=== PATIENT | male | born 1970 | race Caucasian/White ===

== ENCOUNTER 2021-10-01 00:42 | Day surgery (SDC) | payer OTHER, SELFPAY ==
[2021-09-19 13:28] VITALS: BMI 29.5
--- NOTE | 2021-09-30 17:27 | PM.HPGS ---
History of Present Illness History of Present Illness Consent: Risks, benefits, and alternatives have been discussed and questions answered. Patient agrees to proceed with procedure. Chief complaint: positive cologuard Narrative: Jonathan Mathew is a 50 year old male referred for colon cancer screening. This is his 1st colonoscopy. He did perform a Cologuard test which was positive Review of Systems Review of Systems: All systems reviewed & are unremarkable except as noted in HPI and below PMFSH Past Medical History Medical History Anxiety Depression Hyperlipidemia Family History Family History Father Hypertension Social History Social History Smoking status: Never smoker Alcohol intake: current Drinks per week: 4 Alcohol use details: socially Substance use: current Substance use type: marijuana Other substance usage details: 2x a month Living arrangements: with family Spiritual care concerns: No Meds Home Medications and Allergies Home Medications Medication Instructions Recorded Confirmed Type atorvastatin 20 mg PO DAILY 09/19/21 09/19/21 History ropinirole 1 mg PO DAILY 09/19/21 09/19/21 History vortioxetine [Trintellix] 20 mg PO DAILY 09/19/21 09/19/21 History Allergies Allergy/AdvReac Type Severity Reaction Status Date / Time No Known Allergies Allergy Mild Verified 10/01/21 06:51 Exam Const: General: alert Orientation/consciousness: patient oriented x3 Resp: Auscultation: clear to auscultation bilaterally Cardio: Rhythm: regular rhythm GI: GI Palp: Yes Soft to palpation and No Tenderness to palpation present (GI) Neuro: General: patient oriented x3 Assessment and Plan Assessment and plan (1) Colon cancer screening: Code(s): Z12.11 - Encounter for screening for malignant neoplasm of colon Status: Acute Assessment and Plan: Colonoscopy with possible biopsy or polypectomy or cautery or injection of substances.
[2021-10-01 06:52] VITALS: BP 135/71; PULSE 60; RESP 18; TEMP 36.6; O2SAT 97
--- NOTE | 2021-10-01 06:56 | WPDANESEPPF ---
Anes - Initial Pre Proc Eval Procedure: Operation Date: 10/01/21 08:00 Proposed Procedures p Colonoscopy - Jay Dykes MD Date/Time: 10/01/21 06:56 Surgeon: Jay Dykes MD Pre Op Diagnosis: positive cologuard Patient Data Age: 50 Gender: M Height: 1.75 m Weight: 90.9 kg Allergies Allergy/AdvReac Type Severity Reaction Status Date / Time No Known Allergies Allergy Mild Verified 10/01/21 06:51 Home Medications Medication Instructions Recorded Confirmed Type atorvastatin 20 mg PO DAILY 09/19/21 09/19/21 History ropinirole 1 mg PO DAILY 09/19/21 09/19/21 History vortioxetine [Trintellix] 20 mg PO DAILY 09/19/21 09/19/21 History Patient hx anesthesia problems: none Family hx anesthesia problems: none Results Review: All pre-operative results and documents have been reviewed as part of the pre-operative evaluation. COUNTS INCLUDE 234 BEDS AT [facility] Past Medical History Medical History (Updated 10/01/21 @ 06:57 by Dima Mason DO) Anxiety Depression Hyperlipidemia Family History Family History (Updated 04/21/14 @ 07:13 by DOCTOR UNKNOWN) Father Hypertension Social History Social History Smoking status: Never smoker Alcohol intake: current Drinks per week: 4 Alcohol use details: socially Substance use: current Substance use type: marijuana Other substance usage details: 2x a month Living arrangements: with family Spiritual care concerns: No Anes - Eval Final PreProcedure Day of Procedure 10/01/21 06:56 Patient weight: overweight Heart: regular rate and rhythm Lungs: clear to auscultation and normal air movement Airway: Mallampati scale class II Neurological: alert and oriented Last oral intake: >/= 8 hours ASA classification: II Emergent: no Anesthetic plan: proceed Anesthesia type and monitoring: general GIVS and standard monitoring Results Review: All pre-operative results and documents have been reviewed as part of the pre-operative evaluation. Informed Consent: The patient's anesthetic plan and its attendant risks and benefits were discussed with the patient/family/POA. Questions were solicited and answers provided to the satisfaction of the patient/family/POA.
[2021-10-01] MEDS: LACTATED RINGERS 1,000 ML 150 ML IV CONT (07:03)
[2021-10-01] MEDS: SIMETHICONE ORAL SUSPENSION 20 MG/0.3 ML 30 ML BOTTLE 0.6 ML IRRIGATION (08:00)
[2021-10-01 08:15] VITALS: BP 104/52; PULSE 69; RESP 18; O2SAT 97
[2021-10-01 08:25] VITALS: BP 116/70; PULSE 63; RESP 18; O2SAT 98
[2021-10-01 08:35] VITALS: BP 118/66; PULSE 64; RESP 18; O2SAT 99
== END 2021-10-01 08:51 | disposition home or self-care (01) ==
PROVIDERS: PCP Internal Medicine; Visit Provider Internal Medicine Gastroenterology
PROC: 0DJD8ZZ Inspection of Lower Intestinal Tract, Via Natural or Artificial Opening Endoscopic (ICD-10-PCS; CPT 45378; principal; 2021-10-01 08:00)
DX: Z12.11 Encounter for screening for malignant neoplasm of colon (principal); D12.5 Benign neoplasm of sigmoid colon; K62.1 Rectal polyp; R19.5 Other fecal abnormalities; E78.5 Hyperlipidemia, unspecified; F41.8 Other specified anxiety disorders; F12.90 Cannabis use, unspecified, uncomplicated
CPT/HCPCS: 45385; 45380; 88305; J2704; J7120

== ENCOUNTER 2025-01-27 01:30 | Day surgery (SDC) | payer OTHER, SELFPAY ==
[2025-01-18 14:12] VITALS: BMI 32.5
--- OUTSIDE RECORDS SUMMARY | 2025-01-27 01:34 | XMS_ITS | Clinical Summary ---
Author Organization [facility] Address [address] [place] [address] Care Team Providers Care Enrollment Advisor Name Role Phone Unavailable Primary Care Provider Unavailabl e Source Comments [facility],non-owned Affiliates and Associated Physician Practices is amultiple site organization consisting of ambulatory clinics and hospital sitesin [place], [place], [place] and [place]. This disclosure is being madepursuant to the Care Everywhere program and may not contain all information available regarding this patient. 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 Gender Identity Not on file Sexual Orientation Not on file Plan of Treatment Health Maintenance Due Date Last Done Comments COLOGUARD (AGES 45-75) - COL ON CA SCREENING 1971 COLON MONITORING 1971 COLONOSCOPY - COLON CA SCREENING 1971 CT COLONOGRAPHY - COLON CA SCREENING 1971 Colorectal Cancer Screening 1971 FIT - COLON CA SCREENING 1971 FLEX SIG - COLON CA SCREENING 1971 LIPID TESTING 1971 HIV SCREENING 1986 HEPATITIS C SCREENING 10/17/1989 DTAP/TDAP/TD VACCINES (1 - Tdap) 1990 HEPATITIS B VACCINE (1 of 3 - 19+ 3-dose series) 1990 PNEUMOCOCCAL VACCINE 50+ (1 of 1 - PCV) 2021 ZOSTER VACCINE (1 of 2) 2021 COVID-19 VACCINE ( - 2023-2 5 season) 2024 DEPRESSION SCREENING 08/25/2024 INFLUENZA VACCINE (Season Ended) 2025 HIB VACCINE Aged Out No longer eligi ble based on patient's age to complete this topic HPV VACCINE Aged Out No longer eligi ble based on patient's age to complete this topic MENINGOCOCCAL (Group B) VACC INE SHARED DECISION-MAKING Aged Out No longer eligibl e based on patient's age to complete this topic MENINGOCOCCAL GROUPS A/C/Y/W VACCINE Aged Out No longer eligible b ased on patient's age to complete this topic Insurance
--- OUTSIDE RECORDS SUMMARY | 2025-01-27 01:34 | XMS_ITS | Clinical Summary ---
Author Organization [facility] [address] Address [address] [place] [id number] Care Team Providers Care Switch Operators Supervisor Name Role Phone Zhao Allison MD Primary Care Provider Allergies No known active allergies Medications rOPINIRole (REQUIP) 0.25 mg tablet take 1 tablet by oral route 3 times every day 0 0 12/13/2016 Active vortioxetine (TRINTELLIX) 5 mg tablet take 1 tablet by oral route every day at the same time each day 0 0 12/13/[address] (CYMBALTA) 60 mg capsule take 1 capsule (60MG) by oral route every day 0 01/12/2013 Active Active Problems No known active problems Medical History Medical History Date Comments Hx Other Medical heart disease Hypertension Hypertension Family History Medical History Relation Name Comments Cancer Other Family history of Cancer; Hypertension Other Family history of Hypertension; Relation Name Status Comments Other Social History Tobacco Use Types Packs/Day Years Used Date Smoking Tobacco: Never Assessed Alcohol Use Standard Drinks/Week Comments Yes 0 (1 standard drink = 0.6 oz pur e alcohol) Sex and Gender Information Value Date Recorded Sex Assigned at Not on file 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 Gender Identity Not on file Sexual Orientation Not on file Obstetrics History Last Filed Vital Signs Vital Sign Reading Time Taken Comments Blood Pressure 130/85 07/26/2023 10:35 AM HISTORY INSTRUCTOR Pulse 117 07/26/2023 10:35 AM HISTORY INSTRUCTOR Temperature 37.3 C (99.1 F) 07/26/2023 10:35 AM HISTORY INSTRUCTOR Respiratory Rate 16 07/26/2023 10:35 AM HISTORY INSTRUCTOR Oxygen Saturation 99% 07/26/2023 10:35 AM HISTORY INSTRUCTOR Inhaled Oxygen Concentration - - Weight 102.1 kg (225 lb) 07/26/2023 10:35 AM HISTORY INSTRUCTOR Height 175.3 cm (5' 9) 07/26/2023 10:35 AM HISTORY INSTRUCTOR Body Mass Index 33.23 07/26/2023 10:35 AM HISTORY INSTRUCTOR Plan of Treatment Health Maintenance Due Date Last Done Comments Colon Cancer Screening-Colonoscopy 1971 Depression Screening 1971 Hepatitis C Screening 1971 Prostate Cancer Screening-PSA 1971 DTaP/Tdap/Td Vaccine (1 - Tdap) 1982 Hepatitis B Screening 1989 Regular Well Visit/Exam 18-64 1989 Zoster Vaccine (1 of 2) 2021 Influenza Vaccine (Season Ended) 2025 08/05/2022, 07/16/2021 Pneumococcal vaccine <65 Aged Out No longer eligible based on patient's age to complete this topic Insurance [facility] CHOICE PLUS Care Teams Switch Operators Supervisor Relationship Specialty Start Date End Date Zhao Allison MD [address] [facility] [address] PCP - General Internal Medicine 07/26/23
--- OUTSIDE RECORDS SUMMARY | 2025-01-27 01:34 | XMS_ITS | Referral Summary ---
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 Gender Identity Not on file Sexual Orientation Not on file Last Filed Vital Signs Vital Sign Reading Time Taken Comments Blood Pressure 130/85 07/26/2023 10:35 AM PARTS COUNTERMAN Pulse 117 07/26/2023 10:35 AM PARTS COUNTERMAN Temperature 37.3 C (99.1 F) 07/26/2023 10:35 AM PARTS COUNTERMAN Respiratory Rate 16 07/26/2023 10:35 AM PARTS COUNTERMAN Oxygen Saturation 99% 07/26/2023 10:35 AM PARTS COUNTERMAN Inhaled Oxygen Concentration - - Weight 102.1 kg (225 lb) 07/26/2023 10:35 AM PARTS COUNTERMAN Height 175.3 cm (5' 9) 07/26/2023 10:35 AM PARTS COUNTERMAN Body Mass Index 33.23 07/26/2023 10:35 AM PARTS COUNTERMAN Plan of Treatment Not on file Insurance [facility] CHOICE PLUS Care Teams Radiology Tech Relationship Specialty Start Date End Date Zhao Allison MD [address] [facility] [place] [address] PCP - General Internal Medicine 07/26/23
--- OUTSIDE RECORDS SUMMARY | 2025-01-27 01:34 | XMS_ITS | Data Portability ---
Author Organization [place] [facility] [employer], Main Office Address [address] [place] [address] Assessment No assessment recorded. Plan of Treatment Reminders Order Date Submit Date Provider Last Modified By Organization Details Last Modified Time Details Appointments None recorded. Lab PSA, serum or plasma [id number] [place] [address] Outpatient Lab, [address] [place], [address], 12:42:26 lipid panel, serum [id number] [place] [address] Outpatient Lab, [address] [place], [address], 12:42:25 CMP, serum or plasma [id number] [place] [address] Outpatient Lab, [address] [place], [address], 5 12:42:26 CBC w/ auto diff [id number] [place] [address] Outpatient Lab, [address] [place], [address], 5 12:42:26 TSH, serum or plasma [id number] [place] [address] Outpatient Lab, [address] [place], [address], 5 12:42:26 T4, free, serum [id number] [place] [address] Outpatient Lab, [address] [place], [address], 5 12:42:26 PSA, serum or plasma 2022 023 [email or web address] [facility] - Outpatient Lab, [address] [place], [address], 4 09:44:53 lipid panel, serum 2022 023 [facility] - Outpatient Lab, [address] [place], [address], 4 09:44:52 CMP, serum or plasma 2022 023 [facility] Outpatient Lab, [address] [place], [address], 4 09:44:53 CBC w/ auto diff 2022 023 [email or web address] [facility] - Outpatient Lab, [address] [place], [address], 4 09:44:53 TSH, serum or plasma 2022 023 [facility] Outpatient Lab, [address] [place], [address], 4 09:44:53 T4, free, serum 2022 023 [email or web address] [facility] Outpatient Lab, [address] [place], [address], 4 09:44:53 PSA, serum or plasma 2022 023 [email or web address] [facility] Outpatient Lab, [address] [place], [address], 3 17:38:38 lipid panel, serum 2022 023 [email or web address] [facility] - Outpatient Lab, [address] [place], [address], 3 17:38:37 CMP, serum or plasma [address] Outpatient Lab, [address] [place] [address], [address], 3 17:38:37 CBC w/ auto diff [address] Outpatient Lab, [address] [place] [address], [address], 3 17:38:38 TSH, serum or plasma [address] Outpatient Lab, [address] [place] [address], [address], 3 17:38:38 T4, free, serum [address] Outpatient Lab, [address] [place] [address], [address], 3 17:38:38 Referral None recorded. Procedures None recorded. Surgeries None recorded. Imaging None recorded. Medication Orders Protonix 40 mg tablet,del ayed release 2024 025 [id number], [address] [place], [place], [id number], 5 16:38:07 Patient TargetsNo targets recorded. Patient Instructions Encounter Date Encounter Id Patient Instructions Last Modified By Organization Details Last Modified Time 02/03/2023 [id number] risk assessment* [id number] Not availabl e 02/03/2023 11:05:32 INFLUENZA VACCIN E Recommended today, but patient declined Ordered P atient will get at local pharmacy/health department Patient has egg allergy Next vaccination to be given fall of Next vaccination to be given fall of TD/TDAP Patient will get at local pharmacy/health department PNEUMONIA VACCINE Recommended at age 65 SHINGLES Patient will get at local pharmacy/health department PSA No screening necessary patient is up to date COLORECTAL SCREENING No screening necessary patient is up to date DEPRESSION SCREENING Negative BMI Overweight try to lose 10% of your body weight NUTRITION Heart Healthy Diet Recommendatio n of a 1500 caloric intake for weight loss is advised Diabetic Diet Renal Diet DASH Diet Continue healthy eating & exercise Eat Heart Healthy Diet PHYSICAL ACTIVITY Need more exercise/physical activity ALCOHOL USE Occasional/Social Use TOBACCO USE non smoker LUNG CANCER SCREENING Non Smoker-not indicated SEXUALLY ACTIVE HEPATITIS C SCREENING Not indicated GLUCOSE SCREENING Ordered Not needed Known Diabetic recommend ed LIPID SCREENING Ordered Not needed Diagnosis of Hyperlipidemia rec ommended Not available 02/03/2023 10:51:59 Adult health examination risk assessment stable. Follow-up for hyperlipidemia-res tless leg syndrome-anxiety disorder and class one obesity. All clinically stable. Not due for colonoscopy. Had a colonoscopy last year and is due again in three years. Does need a PSA. Otherwise up-to-date. Will need blood work consisting of a CMP, CBC and lipid panel. Will also check a thyroid along with this. Will continue on current Rx and follow-up in six months [email or web address] Not available 02/03/2023 11:02:03 08/04/2023 [id number] Follow-up hyperlipidemia, restless leg syndrome, anxiety disorder and obesity class one. All clinically stable. Check blood work consisting of CBC, CMP, lipid, thyroid and PSA. Continue on current Rx was given a flu shot today. Follow-up in six months. Portions of the record may have been created with voice recognition software. Occasional wrong-word or [id number] substitutions may have occurred due to the inherent limitations of voice recognition software. Read the chart carefully and recognize, using context, where substitutions have occurred. [email or web address] Not available 08/04/2023 10:43:41 Reason for Referral None Reported. Results Created Date Observation Date Name Description Value Unit Range Abnormal Flag Note LastModifiedBy Organization Detail LastModifiedTime 08/08/20 21 08/12/2021 TESTO STERO NE, FREE (DIAL YSIS) AND TOTAL ,MS testosterone , total, MS 455 NG/dL 250-11 00 For addit ional infor francia holden refer to https ://ed sridharati on.qu randi jaraWevod. [employer]/f aq/FA Q165 (This link is being provi ded for infor matio nal/e ducat ional purpo ses only. ) (Note ) This test was devel oped and its lj tical perfo rmanc e yaw cteri stics have been deter mined by [facility]. It has not been clear ed or appro yves by the FDA. This assay has been valid ated pursu ant to the CLIA regul ation s and is used for clini jimmy purpo ses. Not Available [facility] [address] [address] [place], [address], 08/12/2021 20:22:01 08/08/20 21 08/12/2021 TESTO STERO NE, FREE (DIAL YSIS) AND TOTAL ,MS testosterone , free 73.3 pg/mL 35.0-1 55.0 (Note ) This test was devel oped and its lj tical perfo rmanc e yaw cteri stics have been deter mined by [employer]. It has not been clear ed or appro yves by the FDA. This assay has been valid ated pursu ant to the CLIA regul ation s and is used for clini jimmy purpo ses. MDF med fusio n [address] [facility] [address] [facility] [address] [phone] Mino zayas MD Not Available [facility] [address] [address] [place], [address], 08/12/2021 20:22:01 08/08/20 21 08/12/2021 TSH TSH 1.16 mIU/L 0.40-4 .50 normal Not Available [facility] [address] [address] [place], [address], 08/12/2021 20:22:00 08/08/20 21 08/12/2021 T4, FREE T4, free 1.2 NG/dL 0.8-1. 8 normal Not Available [facility] [address] [address] [place], [address], 08/12/2021 20:22:00 08/08/20 21 08/12/2021 DHEA SULFA TE DHEA sulfate 138 mcg/d L 70-495 normal DHEA- S value s fall with advan cing age. For refer ence, the refer ence inter vals for 31-40 year old patie nts are: Male: 106-4 64 mcg/d L Femal e: 23-26 6 mcg/d L Not Available [facility] [address] [place], [address], 08/12/2021 20:21:59 08/08/20 21 08/12/2021 HS CRP hs CRP 2.5 mg/L normal Refer ence Range Optim al <1.0 Jessie church PS et al. Endoc r Pract .2017 ;23(S uppl 2):1- 87. For ages >17 Years : hs-CR P mg/L Risk Accor ding to AHA/C DC Guide lines <1.0 Lower relat tai cardi ovasc ular risk. 1.0-3 .0 [place] ge relat tai cardi ovasc ular risk. 3.1-1 0.0 Hig[place] r relat tai cardi ovasc ular risk. Consi rayo retes ting in 1 to 2 weeks to exclu de a benig n trans ient eleva tion in the basel ine CRP value secon alyse to infec tion or infla mmati on. >10.0 Persi stent eleva tion, upon retes ting, may be assoc iated with infec tion and infla mmati on. Not Available [facility] [address] [address] [place], [address], 08/12/2021 20:21:58 08/08/20 21 08/12/2021 CBC (INCL UDES DIFF/ PLT) white blood cell count 5.0 thous and/u L 3.8-10 .8 normal Not Available [facility] [address] [place], [address], 08/12/2021 20:21:57 08/08/20 21 08/12/2021 CBC (INCL UDES DIFF/ PLT) red blood cell count 5.24 law on/uL 4.20-5 .80 normal Not Available [address], [address], 08/12/2021 20:21:57 08/08/20 21 08/12/2021 CBC (INCL UDES DIFF/ PLT) hemoglobin 15.0 g/dL 13.2-1 7.1 normal Not Available [address], [address], 08/12/2021 20:21:57 08/08/20 21 08/12/2021 CBC (INCL UDES DIFF/ PLT) hematocrit 46.4 % 38.5-5 0.0 normal Not Available [address], [address], 08/12/2021 20:21:57 08/08/20 21 08/12/2021 CBC (INCL UDES DIFF/ PLT) MCV 88.5 fL 80.0-1 00.0 normal Not Available [address], [address], 08/12/2021 20:21:57 08/08/20 21 08/12/2021 CBC (INCL UDES DIFF/ PLT) MCH 28.6 pg 27.0-3 3.0 normal Not Available [address], [address], 08/12/2021 20:21:57 08/08/20 21 08/12/2021 CBC (INCL UDES DIFF/ PLT) MCHC 32.3 g/dL 32.0-3 6.0 normal Not Available [address], [address], 08/12/2021 20:21:57 08/08/20 21 08/12/2021 CBC (INCL UDES DIFF/ PLT) RDW 14.0 % 11.0-1 5.0 normal Not Available [address] [place], [address], 08/12/2021 20:21:57 08/08/20 21 08/12/2021 CBC (INCL UDES DIFF/ PLT) platelet count 281 thous and/u L 140-40 0 normal Not Available [address], [address], 08/12/2021 20:21:57 08/08/20 21 08/12/2021 CBC (INCL UDES DIFF/ PLT) MPV 9.4 fL 7.5-12 .5 normal Not Available [address], [address], 08/12/2021 20:21:57 08/08/20 21 08/12/2021 CBC (INCL UDES DIFF/ PLT) absolute neutrophils 2665 cells /uL 1500-7 800 normal Not Available [address], [address], 08/12/2021 20:21:57 08/08/20 21 08/12/2021 CBC (INCL UDES DIFF/ PLT) absolute lymphocytes 1905 cells /uL 850-39 00 normal Not Available [address], [address], 08/12/2021 20:21:57 08/08/20 21 08/12/2021 CBC (INCL UDES DIFF/ PLT) absolute monocytes 300 cells /uL 200-95 0 normal Not Available [address], [address], 08/12/2021 20:21:57 08/08/20 21 08/12/2021 CBC (INCL UDES DIFF/ PLT) absolute eosinophils 100 cells /uL 15-500 normal Not Available [address], [address], 08/12/2021 20:21:57 08/08/20 21 08/12/2021 CBC (INCL UDES DIFF/ PLT) absolute basophils 30 cells /uL 0-200 normal Not Available [address], [address], 08/12/2021 20:21:57 08/08/20 21 08/12/2021 CBC (INCL UDES DIFF/ PLT) neutrophils 53.3 % normal Not Available [address], [address], 08/12/2021 20:21:57 08/08/20 21 08/12/2021 CBC (INCL UDES DIFF/ PLT) lymphocytes 38.1 % normal Not Available [address], [address], 08/12/2021 20:21:57 08/08/20 21 08/12/2021 CBC (INCL UDES DIFF/ PLT) monocytes 6.0 % normal Not Available [address], [address], 08/12/2021 20:21:57 08/08/20 21 08/12/2021 CBC (INCL UDES DIFF/ PLT) eosinophils 2.0 % normal Not Available [address], [address], 08/12/2021 20:21:57 08/08/20 21 08/12/2021 CBC (INCL UDES DIFF/ PLT) basophils 0.6 % normal Not Available [address], [address], 08/12/2021 20:21:57 08/08/20 21 08/12/2021 COMPR EHENS TAI METAB OLIC PANEL glucose 90 mg/dL 65-99 normal Fasti ng refer ence inter keila Not Available [address], [address], 08/12/2021 20:21:57 08/08/20 21 08/12/2021 COMPR EHENS TAI METAB OLIC PANEL urea nitrogen (BUN) 19 mg/dL 7-25 normal Not Available [address], [address], 08/12/2021 20:21:57 08/08/20 21 08/12/2021 COMPR EHENS TAI METAB OLIC PANEL creatinine 1.14 mg/dL 0.60-1 .35 normal Not Available [address], [address], 08/12/2021 20:21:57 08/08/20 21 08/12/2021 COMPR EHENS TAI METAB OLIC PANEL eGFR non-afr. sao tomean 75 mL/mi n/1.7 3m2 > or = 60 normal Not Available [address], [address], 08/12/2021 20:21:57 08/08/20 21 08/12/2021 COMPR EHENS TAI METAB OLIC PANEL eGFR 87 mL/mi n/1.7 3m2 > or = 60 normal Not Available [address], [address], 08/12/2021 20:21:57 08/08/20 21 08/12/2021 COMPR EHENS TAI METAB OLIC PANEL BUN/creatini ne ratio not applic able (calc ) 6-22 Not Available [address], [address], 08/12/2021 20:21:57 08/08/20 21 08/12/2021 COMPR EHENS TAI METAB OLIC PANEL sodium 141 mmol/ L 135-14 6 normal Not Available [address], [address], 08/12/2021 20:21:57 08/08/20 21 08/12/2021 COMPR EHENS TAI METAB OLIC PANEL potassium 4.5 mmol/ L 3.5-5. 3 normal Not Available [address] [place], [address], 08/12/2021 20:21:57 08/08/20 21 08/12/2021 COMPR EHENS TAI METAB OLIC PANEL chloride 106 mmol/ L 98-110 normal Not Available [address], [address], 08/12/2021 20:21:57 08/08/20 21 08/12/2021 COMPR EHENS TAI METAB OLIC PANEL carbon dioxide 25 mmol/ L 20-32 normal Not Available [address], [address], 08/12/2021 20:21:57 08/08/20 21 08/12/2021 COMPR EHENS TAI METAB OLIC PANEL calcium 9.6 mg/dL 8.6-10 .3 normal Not Available [address], [address], 08/12/2021 20:21:57 08/08/20 21 08/12/2021 COMPR EHENS TAI METAB OLIC PANEL protein, total 6.6 g/dL 6.1-8. 1 normal Not Available [address], [address], 08/12/2021 20:21:57 08/08/20 21 08/12/2021 COMPR EHENS TAI METAB OLIC PANEL albumin 4.3 g/dL 3.6-5. 1 normal Not Available [address], [address], 08/12/2021 20:21:57 08/08/20 21 08/12/2021 COMPR EHENS TAI METAB OLIC PANEL globulin 2.3 g/dL_ (calc ) 1.9-3. 7 normal Not Available [address], [address], 08/12/2021 20:21:57 08/08/20 21 08/12/2021 COMPR EHENS TAI METAB OLIC PANEL albumin/glob ulin ratio 1.9 (calc ) 1.0-2. 5 normal Not Available [address], [address], 08/12/2021 20:21:57 08/08/20 21 08/12/2021 COMPR EHENS TAI METAB OLIC PANEL bilirubin, total 0.4 mg/dL 0.2-1. 2 normal Not Available [address], [address], 08/12/2021 20:21:57 08/08/20 21 08/12/2021 COMPR EHENS TAI METAB OLIC PANEL alkaline phosphatase 70 U/L 36-130 normal Not Available [address], [address], 08/12/2021 20:21:57 08/08/20 21 08/12/2021 COMPR EHENS TAI METAB OLIC PANEL AST 21 U/L 10-40 normal Not Available [address], [address], 08/12/2021 20:21:57 08/08/20 21 08/12/2021 COMPR EHENS TAI METAB OLIC PANEL ALT 17 U/L 9-46 normal Not Available [address], [address], 08/12/2021 20:21:57 08/08/20 21 08/12/2021 LIPID PANEL , STAND RIC cholesterol, total 232 mg/dL <200 high Not Available [address], [address], 08/12/2021 20:21:56 08/08/20 21 08/12/2021 LIPID PANEL , STAND RIC HDL cholesterol 39 mg/dL > or = 40 low Not Available [address], [address], 08/12/2021 20:21:56 08/08/20 21 08/12/2021 LIPID PANEL , STAND RIC triglyceride s 306 mg/dL <150 high If a non-f astin g speci men was colle cted, consi rayo repea t trigl yceri de testi ng on a fasti ng speci men if clini genoveva indic ated. Claudy dallas et al. J. of Clin. Lipid ol. 2015; 9:129 -169. Not Available [facility] [address] [place], [address], 08/12/2021 20:21:56 08/08/20 21 08/12/2021 LIPID PANEL , STAND RIC LDL-choleste rol 146 mg/dL _(jimmy c) high Refer ence range : <100 Yen able range <100 mg/dL for prima ry preve ntion ; <70 mg/dL for patie nts with CHD or diabe tic patie nts with > or = 2 CHD risk facto rs. LDL-C is now calcu lated using the Stacey n-Hop kins calcu latio n, which is a valid ated novel timothyo d provi jean morante r accur acy than the Fried mee equat ion in the estim ation of LDL-C . Stacey mccabe SS et al. ANNA. 2013; 310(1 9): 2061- 2068 (http ://ed ucati on.Qu collinNight Up. com/f aq/FA Q164) Not Available [facility] [address] [place], [address], 08/12/2021 20:21:56 08/08/20 21 08/12/2021 LIPID PANEL , STAND RIC chol/HDLC ratio 5.9 (calc ) <5.0 high Not Available [facility] [address] [place], [address], 08/12/2021 20:21:56 08/08/20 21 08/12/2021 LIPID PANEL , STAND RIC non HDL cholesterol 193 mg/dL _(jimmy c) <130 high For patie nts with diabe danis plus 1 major ASCVD risk facto r, treat ing to a non-H DL-C goal of <100 mg/dL (LDL- C of <70 mg/dL ) is rhea mixon optio n. Not Available [facility] [address] [address], [place], [address], 08/12/2021 20:21:56 08/20/20 21 08/20/2021 COLOG UARD cologuard result reportable positi ve negati ve abnormal POSIT TAI TEST RESUL T. A posit tai Colog uard resul t shoul d be follo wed with a colon oscop y or visua l exami natio n of the colon . The chase l value (refe rence range ) for this assay is negat tai. TEST DESCR IPTIO N: Scanlon site algor ithmi c lj sis of stool DNA-b iomar kers with hemog lobin immun oassa y. Quant itati ve value s of indiv idual bioma rkers are not repor table and are not assoc iated with indiv idual bioma rker resul t refer ence range s. Colog uard is inten ded for color ectal cance r scree ceci of adult s of eithe r sex, 45 years or older , who are at [facility] for color ectal cance r (CRC) . Colog uard has been appro yves for use by the U.S. FDA. The perfo rmanc e of Colog uard was estab lishe d in a cross secti onal study of [facility] adult s aged 50-84 . Colog uard perfo rmanc e in patie nts ages 45 to 49 years was estim ated by sub-g roup lj sis of near- age group s. Colon oscop ies perfo rmed for a posit tai resul t may find as the most clini genoveva signi fican t lesio n: color ectal cance r [4.0% ], advan blanche adeno ma (incl uding sessi le abdullahi michael polyp s great er than or equal to 1cm diame ter) [20%] or non- advan blanche adeno ma [31%] ; or no color ectal neopl umu [45%] . These estim ates are deriv ed from a prosp ectiv e cross -sect ional scree ceci study of ,00 0 indiv idual s at [place] ge risk for color ectal cance r who were scree jesse with both Colog uard and colon oscop y. (Shonda Rosa et al, N Engl J Med 2014; 370(1 4):12 86-12 97.) Colog uard may produ ce a false negat tai or false posit tai resul t (no color ectal cance r or preca ncero us polyp prese nt at colon oscop y follo w up). A negat tia Colog uard test resul t does not guara ntee the absen ce of CRC or advan blanche adeno ma (pre- cance r). The curre nt Colog uard scree ceci inter keila is every 3 years . (Amer ican Cance r Socie ty and U.S. Multi -Soci ety Task Force ). Colog uard perfo rmanc e data in a 0 patie nt pivot al study using colon oscop y as the refer ence metho d can be acces sed at the follo wing locat ion: www.e xactl abs.c om/re reji . Addit ional descr iptio n of the Colog uard test proce ss, warni ngs and preca ution s can be found at www.c edeu ric.c om. Not Available [facility] (Cologuard Orders Only) [address], [place], [address], 08/27/2021 08:52:04 Result Notes None recorded. Problems Name Problem SNOMED Code Status Onset Date Resolution Date Notes Provider Name and Address Organization Details Recorded Time Anxiety disorder 927207159 Active 2018 Not Available [facility] 3 21:18:57 Gastroesop hageal reflux disease 669865087 Active 2018 JEN Stacy - [facility] [employer] 5 11:05:05 Family history of Cardiovasc ular disease 960633348 Active 2018 Not Available [facility] 3 21:18:57 Restless legs 00127917 Active 2018 Not Available [facility] 3 21:18:57 Hyperlipid emia 92043294 Active 2021 Not Available [facility] 3 21:18:57 Testicular hypofuncti on 174241044 Active 2022 Zhao Allison MD [address], [place], [address] , [facility] 3 10:58:41 Obese class I 0025888756422 07 Active 2022 Zhao Allison MD [address], [place], [address] , [facility] 3 10:59:26 Disorder of prostate 12653269 Active 2022 Zhao Allison MD [address] [employer], [place], [address] , [facility] 3 10:43:27 Problem Notes None recorded. Procedures Surgical History Date Name Laterality Status Provider Name and Address Organization Details Recorded Time Vasectomy completed Not Available [facility] 0 10/23/2022 21:17:47 Imaging Results None recorded. Procedure Notes None recorded. Medical Equipment None Reported. Medications Name Sig Start Date Stop Date Status Note LastModified by Organization Details LastModified Time atorvastati n 20 mg tablet pt needs to call office for appt we have not seen since 2022 active Not Available Not Available No t Available ropinirole 1 mg tablet TAKE 2 TABLETS BY MOUTH TWICE DAILY active Not Available Not Available No t Available omeprazole 40 mg capsule,del ayed release TAKE ONE CAPSULE BY MOUTH EVERY DAY 07/16 completed Not Available Not Available Not Available tramadol 50 mg tablet TK 1 T PO Q 6 H PRN 07/16 completed Not Available Not Available Not Available pantoprazol e 40 mg tablet,lashell yed release TAKE 1 TABLET BY MOUTH EVERY DAY active Not Available Not Available No t Available methylpredn isolone 4 mg tablets in a dose pack 08/04 completed Not Available Not Available Not Available albuterol sulfate HFA 90 mcg/actuati on aerosol inhaler INHALE 2 PUFFS BY MOUTH EVERY 4 HOURS NEEDED active Not Available Not Available No t Available fluticasone propionate 50 mcg/actuati on nasal spray,suspe nsion SHAKE LIQUID AND USE 1 SPRAY IN EACH NOSTRIL 1 TO 2 TIMES A DAY 12/29 completed Not Available Not Available Not Available amoxicillin 875 mg-potassiu m clavulanate 125 mg tablet TAKE 1 TABLET BY MOUTH EVERY 12 HOURS WITH FOOD 12/29 completed Not Available Not Available Not Available Neupro 1 mg/24 hour transdermal 24 hour patch APPLY 1 PATCH TOPICALLY TO THE SKIN EVERY DAY 08/05 completed Not Available Not Available Not Available Trintellix 10 mg tablet TK 1 T PO ONCE A DAY 07/16 completed Not Available Not Available Not Available Trintellix 20 mg tablet TAKE 1 TABLET BY MOUTH DAILY active Not Available Not Available No t Available Vitals Date Recorded Body height Body mass index (BMI) Body weight Heart rate Body temperature Oxygen saturation Oxygen saturation in Arterial blood by Pulse oximetry Systolic blood pressure Diastolic blood pressure Provider Name and Address Organization Details Last Updated DateTime 5 175.26 cm 33.7 kg/m2 108462. 06 g 79 /min 97 [degF] 98 % 98 % 118 mm[Hg] 90 mm[Hg] Rylie Quijano [facility] 5 16:28:21 Date Recorded Body height Body mass index (BMI) Body weight Heart rate Oxygen saturation Oxygen saturation in Arterial blood by Pulse oximetry Systolic blood pressure Diastolic blood pressure Provider Name and Address Organization Details Last Updated DateTime 3 175.26 cm 33.7 kg/m2 059677. 06 g 80 /min 97 % 97 % 122 mm[Hg] 68 mm[Hg] Nay Cardoza CMA [facility] 3 10:48:33 Date Recorded Body mass index (BMI) Body height Heart rate Respiratory rate Body temperature Body weight Systolic blood pressure Diastolic blood pressure Provider Name and Address Organization Details Last Updated DateTime 1 30.4 kg/m2 175.26 cm 72 /min 12 /min 97.6 [degF] 74586.0 3 g 114 mm[Hg] 68 mm[Hg] Not Available [facility] 3 21:18:11 Date Recorded Body height Body mass index (BMI) Body weight Heart rate Body temperature Oxygen saturation Oxygen saturation in Arterial blood by Pulse oximetry Systolic blood pressure Diastolic blood pressure Provider Name and Address Organization Details Last Updated DateTime 3 175.26 cm 33.7 kg/m2 937785. 86 g 72 /min 97 [degF] 97 % 97 % 134 mm[Hg] 82 mm[Hg] Rylie Quijano [place] [facility] 3 10:37:45 Date Recorded Body mass index (BMI) Body height Oxygen saturation Oxygen saturation in Arterial blood by Pulse oximetry Heart rate Body temperature Body weight Systolic blood pressure Diastolic blood pressure Provider Name and Address Organization Details Last Updated DateTime 2 34.6 kg/m2 175.26 cm 96 % 96 % 81 /min 97.2 [degF] 749604. 61 g 120 mm[Hg] 88 mm[Hg] Not Available [facility] 3 21:18:12 Social History Question Answer Notes LastModified by [employer] Details LastModified Time Tobacco Smoking Status Former Smoker Not Available [facility] 10/23/2022 21:17:28 When Did You Quit Smoking? 17+yearssinc elastcigaret te [id number] Information not available 10/23/2022 What Was The Date Of Your Most Recent Tobacco Screening? 07/16/2021 [id number] Information not available 10/23/2022 Sex: Unknown Functional Status Question Answer Note LastModified by [employer] Details LastModified Time Do you or have you ever used any other forms of tobacco or nicotine? No [id number] Information not available 10/23/2022 Mental Status None recorded. Family History Relationship Description Onset Age of this Age Resolved Age Notes LastModified by Organization Details LastModified Time Mother Coronary artery bypass graft [id number] Not available 10/23/2022 21:17:47 Father Hypertensive disorder [id number] Not available 10/23/2022 21:17:47 Notes:Mother living 74 CABG Father living 74 HTN One brother living good health Two sisters living good health Medical History Condition Response BLINDNESS N NERVE DISEASE N RHEUMATIC FEVER N BLADDER PROBLEMS N KIDNEY STONES N MRSA N OTHER # 1 N POLIO N LUNG DISEASE/DISORDER N HISTORY OF DRUG ABUSE N RADIATION / CHEMOTHERAPY N COPD N Other # 2 N BLOOD DISEASES N EAR OR HEARING PROBLEMS N MUMPS N SHINGLES N BOWEL PROBLEMS N DEPRESSION (INCLUDING POST ) N STROKE/TIA N ULCERS N BENIGN PROSTATIC HYPERPLASIA N MEASLES N HYPOTENSION N MYOCARDIAL INFARCTION N OBESITY N GERD/NAUSEA N ANEURYSM N URINARY/BLADDER/KIDNEY PROBLEMS N CORONARY ARTERY DISEASE (CAD) N ADDICTION CONCERNS N Impotence N ENDOMETRIOSIS N USE OF BLOOD THINNERS N SKIN PROBLEMS N GASTROINTESTINAL DISORDER N PERIPHERAL VASCULAR DISEASE N MUSCLE,JOINT OR BONE PROBLEMS N GASTROINTESTINAL BLEEDING N BLOOD CLOTS N ASTHMA N CATARACTS N ERECTILE DYSFUNCTION N VARICOSITIES N GI PROBLEMS N Low Testosterone N INFERTILITY N AIDS/HIV N CHEMOTHERAPY / RADIATION N LIVER DISEASE N MALE HYPOGONADISM N HYPERTENSION N Deficiency N TOURETTE'S N ANXIETY DISORDER Y BLOOD TRANSFUSION N ANEMIA/BLOOD DISORDER N CHRONIC EAR INFECTIONS N BRONCHITIS N TUBERCULOSIS N GLAUCOMA N FOOT PROBLEM N DIVERTICULITIS N SLEEP APNEA N CHICKENPOX N INFECTIOUS DISEASE N PROSTATE N HEART ARRHYTHMIA N INSOMNIA N HIGH CHOLESTEROL / HYPERLIPIDEMIA N HYPERTHYROIDISM N EYE PROBLEMS N EDEMA N CHRONIC PAIN SYNDROME N HYPOTHYROIDISM N CONSTIPATION N CAROTID BLOCKAGE N BACK / NECK PROBLEMS N HAVE YOU BEEN HOSPITALIZED OR SEEN IN [facility] IN THE PAST YEAR ? N ATHEROSCLEROSIS N BREAST PROBLEMS N DIALYSIS N ECZEMA N OSTEOPOROSIS N ARTHRITIS N NO SIGNIFICANT PAST MEDICAL HISTORY N APPENDICITIS N DIABETES, TYPE N BAD TEETH N ENT N HEARTBURN / REFLUX Y AUTISM SPECTRUM DISORDER (ASD) N HEPATITIS / LIVER DISEASE N GOUT N SLEEP DISORDER N ALZHEIMER'S DISEASE N Brain Problems N HERPES N DEMENTIA N SEIZURES/EPILEPSY N HEADACHES/MIGRAINES N VASCULAR DISEASE N PACEMAKER N Blood Disorder N DIZZINESS N KIDNEY DISEASE N HEART DISEASE/HEART PROBLEMS N MULTIPLE SCLEROSIS N CARDIAC ARRHYTHMIA N CANCER: SPECIFY N Gall Stones N ATRIAL FIBRILLATION N PULMONARY EMBOLISM N AUTOIMMUNE DISEASE N Immunizations Vaccine Type Date Status Note Provider Nam e and Address Organization Details Recorded Time Influenza, split virus, quadrivalent, PF 07/16/2021 completed Not Available [facility] 3 21:19:57 Influenza, split virus, quadrivalent, PF 08/05/2022 completed Not Available [facility] 21:19:57 Influenza, split virus, quadrivalent, PF 08/04/2023 completed Zhao Allison MD [address] [place] [address], [place] [address], [place], [address], [place] - [facility] 08/04/2023 10:39:25 Past Encounters Encounter ID Performer Location Encounter Start Date Encounter Closed Date Diagnosis/Indication Diagnosis SNOMED-CT Code Diagnosis ICD10 Code Diagnosis Note [id number] Zhao Allison MD [facility] Internal Med [facility] [address] [address] 07/16/2021 00:00:00 07/16/2021 16:25:55 [id number] Zhao Allison MD [facility] Internal Med [facility] [address] [facility] [address] [place] [address] 08/05/2022 00:00:00 08/05/2022 17:05:52 [id number] Zhao Allison MD [facility] Internal Med [facility] [address] [facility] [address] [place] [address] 02/03/2023 10:34:50 02/03/2023 11:13:07 Adult health examination 724887412 Z00.00 Depression screening 171 641960 Z13.31 Hyperlipidemia 27022517 E78.5 Restless legs 86332631 G 25.81 Anxiety disorder 06 F41.9 Obese class I 6423996017 51301 E66.9 Disorder of prostate 302 71439 N42.9 [id number] Zhao Allison MD [facility] Internal Med [facility] [address] [facility] [address] [place] [address] 08/04/2023 10:31:58 08/04/2023 10:48:49 Administration of influenza vaccine 24031143 Z23 Restless legs 78629739 G 25.81 Anxiety disorder 06 F41.9 Hyperlipidemia 89127470 E78.5 Disorder of prostate 302 63460 N42.9 [id number] Zhao Alilson MD [facility] [place] Med [address] [address] 12/29/2024 16:11:11 12/29/2024 16:47:33 Gastroesophageal reflux disease 478450733 K21.9 Hyperlipidemia 38857931 E78.5 Obese class I 1905063929 09353 E66.9 Disorder of prostate 302 06536 N42.9 Health Concerns Section Related Observation LastModified by Organization Detai ls LastModified Time None Recorded Concern Status LastModified by Organization Details LastModified Time None Recorded Advance Directives Directive None Recorded Payers Encounter Date Sequence Insurance Name Policy Number Policy Mcguire Covered Member ID Mcguire Member ID Guarantor Name 02/03/2023 1 [facility] [id number] Jonathan Mathew [id number] Jonathan Mathew 08/04/2023 1 [facility] [id number] Jonathan Mathew [id number] Jonathan Mathew 12/29/2024 1 [facility] [id number] Jonathan Mathew [id number] Jonathan Mathew Notes Date Note Type Note Provider Name and Address Organization Details Recorded Time 02/04/20 23 text/htm l Patient Name: Jonathan Winterate Of Service: Friday ( 02.03.2023 ): 1970 Age: 52 There has been approximately a 6 lb weight loss since 08/05/2022. This represents approximately a 2.6% change in weight. Weight change attributable to lifestyle changes. Vital Signs:Blood Pressure: Sitting Rt. Arm 122/68Pulse: Sitting 80 /min and RegularRespirations: 12Height 69 in or 1.8 mWeight 228 lb or 103.4 kgBMI 33.7Temperature: 97 F or 36.1 CPulse Oximetry: 97 % at rest on no oxygen Chief Complaint: Addressed in HPI Problems or conditions discussed in the HPI were the only ones reviewed during the encounter.Only social and family history addressed in the HPI were reviewed during this encounter. Attendant(s): None Constitutional and Systemic Symptoms: none Medication Reconciliation: from medication list. History of Present Illness #1. Type II Hypercholesterolaemia: Currently taking medication and tolerating well. No interval complaints of any muscle pain or arthralgia. No significant liver changes with medications. Last lipid panel: fair control. Therapy reviewed regarding treatment of cholesterol management and include diet and Atorvastatin Calcium. #2. Restless Leg Syndrome: Hx of the restless leg syndrome. Currently taking no medications. Symptoms are well controlled. #3. Anxiety Disorder: History of anxiety disorder. There has been no panic attacks. No interval complaints of any vegetative or other signs of depression. Taking Trintellix. Discussed possibility of decreasing and weaning off medication. Feels that current regimen is working fine and wishes not to change the current treatment regimen. Medication not causing any sedation or cognitive dysfunction and there is no contraindication to continue current therapy. #4. Hx of obesity. Currently Class 1 Obesity BMI 30-34.99. Has tried numerous dietary support and supplements with no benefit. Instructed on the health consequences of the obese status particularly cancer - diabetes and heart disease. Discussed new modalities of weight loss including GLP-1 medications that are used to treat diabetes. Potential candidate for bariatric surgery: No. Wishes to be evaluated by Dietary: No and was offered to be evaluated and instructed by senior product analyst on weight loss diet.Medication List Reviewed and Reconciled 02/03/2023Ozempic 2.68 MG/ML INJECTION, SOLUTION Once WeeklyTestosterone Propionate In Oil Once WeeklyAtorvastatin Calcium 20 MG TABLET One DailyTrintellix 10 MG (TABLET - ORAL) Once DailyRopinirole 1 MG (TABLET - ORAL) One Three Times A DayVaccination and Nlmesftnxpjr1706-03 Aguihmxle6327-37 Covid ModernaSurgical HistoryVasectomyPreventative Testing Confirmed by Our Lzkarom7310/01/2021 COLONOSCOPY (3 YEARS) 5110/21/2020 COLOGUARD / ALBUMIN 4.3 G/DLSocial HistoryDoes not smokeDrinks sociallyArt TeacherFamily HistoryMother living 74 CABGFather living 74 HTNOne brother living good healthTwo sisters living good health Zhao Allison MD [address] [facility] [address], [place], [address], [facility] [employer] 02/03/2023 11:05:38 08/04/20 23 text/htm l Patient Name: Jonathan Joseph Of Service: Friday ( 08.04.2023 ): 1970 Age: 52 Vital Signs:Blood Pressure: Sitting Rt. Arm 134/82Pulse: Sitting 72 /min and RegularRespiratory Rate: 12Height 69 in or 1.8 mWeight 228.5 lb or 103.6 kgBMI 33.7Temperature: 97 F or 36.1 CPulse Oximetry: 97 % at rest on no oxygen Chief Complaint: Addressed in HPI Problems or conditions discussed in the HPI were the only ones reviewed during the encounter.Only social and family history addressed in the HPI were reviewed during this encounter. Attendant(s): NoneConstitutional and Systemic Symptoms:none Medication Reconciliation: from medication list. History of Present Illness #1. Type II Hypercholesterolaemia: Currently taking medication and tolerating well. No interval complaints of any muscle pain or arthralgia. No significant liver changes with medications. Last lipid panel: fair control. Therapy reviewed regarding treatment of cholesterol management and include Atorvastatin Calcium. #2. Anxiety Disorder: History of anxiety disorder. There has been no panic attacks. No interval complaints of any vegetative or other signs of depression. Taking Trintellix. Discussed possibility of decreasing and weaning off medication. Feels that current regimen is working fine and wishes not to change the current treatment regimen. Medication not causing any sedation or cognitive dysfunction and there is no contraindication to continue current therapy. #3. Restless Leg Syndrome: Hx of the restless leg syndrome. Currently taking Ropinirole Symptoms are improved. #4. Hx of obesity. Currently Class 1 Obesity BMI 30-34.99. Has tried numerous dietary support and supplements with no benefit. Instructed on the health consequences of the obese status particularly cancer - diabetes and heart disease. Discussed new modalities of weight loss including GLP-1 medications that are used to treat diabetes. Potential candidate for bariatric surgery: No. Wishes to be evaluated by Dietary: No and was offered to be evaluated and instructed by senior product analyst on weight loss diet.Medication List Reviewed and Reconciled 3Atorvastatin Calcium 20 MG TABLET One DailyTrintellix 10 MG (TABLET - ORAL) Once DailyRopinirole 1 MG (TABLET - ORAL) One Three Times A DayVaccination and Nltmmnlwcmtr0653-69 Jfoqugrqe8933-57 Covid ModernaSurgical HistoryVasectomyPreventative Testing Confirmed by Our Ewdqrmx5210/01/2021 COLONOSCOPY (3 YEARS) 5110/21/2020 COLOGUARD ALBUMIN 4.3 G/DL NSocial HistoryDoes not smokeDrinks sociallyArt TeacherFamily HistoryMother living 74 CABGFather living 74 HTNOne brother living good healthTwo sisters living good health Zhao Allison MD [address] [facility] [address], [place], [address], [facility] 08/04/2023 10:44:12 12/30/19 25 text/htm l Patient Name: Jonathan Joseph Of Service: Friday ( 12.29.2024 ): 1970 Age: 54 Vital Signs:Blood Pressure: Sitting Rt. Arm 118/80Pulse: Sitting 79 /min and RegularRespiratory Rate: 16Height 69 in or 1.8 mWeight 228 lb or 103.4 kgBMI 33.7Temperature: 97 F or 36.1 CPulse Oximetry: 98 % at rest on no oxygen Chief Complaint: Addressed in HPI Problems or conditions discussed in the HPI were the only ones reviewed during the encounter.Only social and family history addressed in the HPI were reviewed during this encounter. Attendant(s): NoneConstitutional and Systemic Symptoms:anorexia, weight loss and generalized fatigue Medication Reconciliation: from medication list. History of Present Illness #1. Hx of esophageal reflux currently stable. Hx of Complications: none The severity, duration and intensity of symptoms have increased. Frequency: most meals and nocturnal Treatment consists medications taken on no regular basis. Current therapy includes no medication. There has been eructation, vomiting and Nausea. No change in he frequency or intensity of symptoms. Has had no melena. Has had no . Discussed use of H2 antagonists NA. #2. Type II Hypercholesterolaemia: Currently taking medication and tolerating well. No interval complaints of any muscle pain or arthralgia. No significant liver changes with medications. Last lipid panel: fair control. Therapy reviewed regarding treatment of cholesterol management and include diet and Atorvastatin Calcium. #3. Hx of obesity. Currently Class 1 Obesity BMI 30-34.99. Has tried numerous dietary support and supplements with no benefit. Instructed on the health consequences of the obese status particularly cancer - diabetes and heart disease. Discussed other modalities of weight loss no . Potential candidate for bariatric surgery: No. Wishes to be evaluated by Dietary: No and was offered to be evaluated and instructed by senior product analyst on weight loss diet. Active Medication ListAtorvastatin Calcium 20 MG TABLET One DailyTrintellix 10 MG (TABLET - ORAL) Once DailyRopinirole 1 MG (TABLET - ORAL) One Three Times A Day Vaccination and Immunization(X) 2020- COVID MODERNA(X) 2022- INFLUENZA Surgical [id number] Vasectomy Preventative Testing(X) 10/01/2021 Colonoscopy (3 Years) 10/01/2024( ) 08/08/2021 Albumin 4.3 G/DL N Social HistoryDoes not smokeDrinks sociallyArt Teacher Family HistoryMother living 76 CABGFather living 76 HTNOne brother living good healthTwo sisters living good health Zhao Allison MD [address] [facility] [address], [place], [address], [place] - [facility] [employer] 12/29/2024 16:38:26
--- OUTSIDE RECORDS SUMMARY | 2025-01-27 01:35 | XMS_ITS | Patient Health Record ---
Author Organization [facility] As [email or web address] [facility] Address [address] [facility] [address] [place] [address] Care Team Providers Care Wildlife Veterinarian Name Role Phone Zhao Allison MD Primary Care Provider James Cardenas Unavailable [phone] Allergies No Known Allergies Reason For Referral No Information Medications Medication SIG (Take, Route, Frequency, Duration) Notes Start Date End Date Status Trintellix 20 MG 1 tablet Oral Once a day for 90 days Active rOPINIRole HCl 1 MG 2 tablets by mouth t wice a day for 90 days Active Atorvastatin Calcium 20 MG Oral 11/25/2023 Active Immunizations Vaccine Route Administration Date Status Comme nts Moderna Covid-19 Vaccine 1st dose Unknown 10/05/2020 Ad ministered Moderna Covid-19 Vaccine 1st dose Unknown 11/06/2020 Ad ministered Influenza virus vaccine, quadrivalent (IIV4), split virus, 0.25 mL dosage Unknown 04/25/2018 Administered Social History Tobacco Use: Social History Observation Description Date Details (start date - stop date) Never Smoker NA - NA Sex Assigned At : Social History Observation Description Sex Assigned At Male Tobacco Control (Standard) Question Answer Notes Tobacco use: Nonsmoker Problems Problem Type SNOMED Code ICD Code Onset Dates Problem Status W/U Status Risk Notes Problem Mild recurrent major depression (79451650) Major depressive disorder, recurrent, mild (F33.0) Active confirmed Problem Generalized anxiety disorder (18522679) Generalized anxiety disorder (F41.1) Active confirmed Problem Primary insomnia (3506197) Primary insomnia (F51.01) Active confirmed Problem Restless legs syndrome (37926601) Restless legs syndrome (G25.81) Active confirmed Vital Signs Heart Rate 75 /min 11/24/2024 Height-cm 175.26 cm 11/24/2024 Blood pressure diastolic 92 mm Hg 11/24/2024 Weight-kg 101.15 kg 11/24/2024 Height 69.00 in 11/24/2024 Blood pressure systolic 133 mm Hg 11/24/2024 Weight 223 lbs 11/24/2024 BMI 32.93 kg/m2 11/24/2024 Encounters Encounter Location Date Provider Diagnosis [facility] [employer] [address] [address] 05/26/2024 James Mckinleyoza Restless legs syndro me G25.81 ; Major depressive disorder, recurrent, mild F33.0 ; Generalized anxiety disorder F41.1 and Primary insomnia F51.01 [facility] [employer] [address] [address] 11/24/2024 Jamessienna Ryan Encounter for screen ing for depression Z13.31 ; Encounter for screening for cardiovascular disorders Z13.6 ; Dietary counseling and surveillance Z71.3 ; Restless legs syndrome G25.81 ; Major depressive disorder, recurrent, mild F33.0 ; Generalized anxiety disorder F41.1 and Primary insomnia F51.01 [facility] [employer] [address] [address] 05/18/2024 James Ryan Restless legs syndro me G25.81 Assessments Encounter Date Diagnosis (ICD Code) Assessment Notes Treatment Notes Treatment Clinical Notes Section Notes 05/26/2024 Restless legs syndrome (ICD-10 - G25.81) 1. Depression: - Patient reports no significant depressive symptoms at this time. Plan: - Continue Trintellix 20 mg daily. 2. Restless Legs Syndrome: - Patient is taking ropinirole 1 mg, four times a day (three in the morning, one at night) and reports no issues. Plan: - Continue ropinirole 1 mg, four times a day. 3. Gastrointestinal upset: - Patient reports stomach upset after taking Trintellix and statin medication together in the morning. Plan: - Recommend the administration of Trintellix and statin medication to see if it alleviates gastrointestinal symptoms. Follow-up: - Schedule a follow-up appointment in six months to reassess the patient's progress and medication management. - Encourage the patient to contact the clinic if any new concerns or side effects arise before the next appointment. 05/26/2024 Major depressive disorder, recurrent, mild (ICD-10 - F33.0) 1. Depression: - Patient reports no significant depressive symptoms at this time. Plan: - Continue Trintellix 20 mg daily. 2. Restless Legs Syndrome: - Patient is taking ropinirole 1 mg, four times a day (three in the morning, one at night) and reports no issues. Plan: - Continue ropinirole 1 mg, four times a day. 3. Gastrointestinal upset: - Patient reports stomach upset after taking Trintellix and statin medication together in the morning. Plan: - Recommend the administration of Trintellix and statin medication to see if it alleviates gastrointestinal symptoms. Follow-up: - Schedule a follow-up appointment in six months to reassess the patient's progress and medication management. - Encourage the patient to contact the clinic if any new concerns or side effects arise before the next appointment. 11/24/2024 Encounter for screening for depression (ICD-10 - Z13.31) 05/26/2024 Generalized anxiety disorder (ICD-10 - F41.1) stable 1. Depression: - Patient reports no significant depressive symptoms at this time. Plan: - Continue Trintellix 20 mg daily. 2. Restless Legs Syndrome: - Patient is taking ropinirole 1 mg, four times a day (three in the morning, one at night) and reports no issues. Plan: - Continue ropinirole 1 mg, four times a day. 3. Gastrointestinal upset: - Patient reports stomach upset after taking Trintellix and statin medication together in the morning. Plan: - Recommend the administration of Trintellix and statin medication to see if it alleviates gastrointestinal symptoms. Follow-up: - Schedule a follow-up appointment in six months to reassess the patient's progress and medication management. - Encourage the patient to contact the clinic if any new concerns or side effects arise before the next appointment. 11/24/2024 Encounter for screening for cardiovascular disorders (ICD-10 - Z13.6) 05/18/2024 Restless legs syndrome (ICD-10 - G25.81) 11/24/2024 Dietary counseling and surveillance (ICD-10 - Z71.3) 05/26/2024 Primary insomnia (ICD-10 - F51.01) stable 1. Depression: - Patient reports no significant depressive symptoms at this time. Plan: - Continue Trintellix 20 mg daily. 2. Restless Legs Syndrome: - Patient is taking ropinirole 1 mg, four times a day (three in the morning, one at night) and reports no issues. Plan: - Continue ropinirole 1 mg, four times a day. 3. Gastrointestinal upset: - Patient reports stomach upset after taking Trintellix and statin medication together in the morning. Plan: - Recommend the administration of Trintellix and statin medication to see if it alleviates gastrointestinal symptoms. Follow-up: - Schedule a follow-up appointment in six months to reassess the patient's progress and medication management. - Encourage the patient to contact the clinic if any new concerns or side effects arise before the next appointment. 11/24/2024 Restless legs syndrome (ICD-10 - G25.81) 11/24/2024 Major depressive disorder, recurrent, mild (ICD-10 - F33.0) 11/24/2024 Generalized anxiety disorder (ICD-10 - F41.1) stable 11/24/2024 Primary insomnia (ICD-10 - F51.01) stable 11/24/2024 Sumaya Mathew presents with ongoing nausea, anxiety, depression, and sleep disturbances, reporting multiple jobs and use of THC for anxiety management. Nausea Assessment: Patient reports persistent morning nausea for the past year, potentially attributed to Saphnelo. The nausea affects appetite, particularly in the mornings. Differential diagnoses include medication side effects (Saphnelo, Trintellix) and possible acid reflux. Patient also reports frequent throat clearing, which may be related to acid reflux or post-nasal drip. Plan: - Consider trial of [id number] er omeprazole or Zantac for potential acid reflux - Patient may reduce Trintellix dosage from 20 mg to 10 mg or 15 mg to assess if nausea improves - Advised to wait at least two weeks between medication changes - Patient instructed to cut Trintellix tablets in half if choosing to reduce dosage to 10 mg Anxiety Assessment: Patient reports increased anxiety around people. Currently using THC to manage anxiety symptoms. Expresses desire to avoid sedating medications. Plan: - Continue current management with THC as per patient preference - Monitor for changes in anxiety symptoms Depression Assessment: Patient experiences days of not wanting to get out of bed, though it's unclear if this is due to mood or exhaustion from multiple jobs. Currently on Trintellix, which the patient reports as effective. Plan: - Continue Trintellix 20 mg daily - Monitor for changes in depressive symptoms, especially if dosage is reduced Restless Legs Syndrome Assessment: Patient reports ropinirole is effective in managing leg symptoms, likely referring to Restless Legs Syndrome. Plan: - Continue ropinirole at current dosage (dosage not specified) Allergic Symptoms Assessment: Patient reports post-nasal drip and watery eyes, suggestive of allergic rhinitis. Plan: - Consider trial of ubpx-tun-[id number] er antihistamine Follow-up Assessment: Patient requires ongoing monitoring of multiple conditions and medication effects. Plan: - Follow-up appointment scheduled in 3 months - Patient advised to message if problems arise with medication before next appointment the note is transcribed using speech recognition software. It is a reflection of a visit with the patient. It might have some inaccuracy, including medication names and transcribing errors, though efforts have been made to correct them. Plan Of Treatment Next Appt Details Provider Name:James chen, 02/22/2025 10:00:00 AM, [address] [facility] [address], [facility] [address], [place], [address], Insurance Providers Payer Name Payer Address Payer Phone Subscriber Number Group Number Insured Name Patient Relationship to Insured Coverage Start Date Coverage End Date [facility] [address] [place] [phone] [id number] HAWA MATHEW Self - patient is the insured Medical (General) History Medical History History ICD Code Problems: Depressive disorder Generalized anxiety disorder Primary insomnia Restless legs ,
[2025-01-27 08:24] VITALS: BP 130/92; PULSE 67; RESP 18; TEMP 36.1; O2SAT 99
[2025-01-27] MEDS: LACTATED RINGERS 1,000 ML 150 ML IV CONT (08:28)
[2025-01-27] MEDS: SIMETHICONE ORAL SUSPENSION 20 MG/0.3 ML 30 ML BOTTLE 1.8 ML PO (08:29)
--- NOTE | 2025-01-27 08:53 | P.PNAN_ITS ---
Anes - Initial Pre Proc Eval Procedure: Operation Date: 01/27/25 09:00 Proposed Procedures p Screening Colonoscopy - Hugh Cerda MD s Esophagogastroduodenoscopy - Hugh Cerda MD Date/Time: 01/27/25 08:53 Surgeon: Hugh Cerda MD Pre Op Diagnosis: personal hx colon polyps, GERD Patient Data Age: 54 Gender: M Height: 1.75 m Weight: 100.4 kg Last Vital Signs Temp 97.0 F L 01/27/25 08:24 Pulse 67 01/27/25 08:24 Resp 18 01/27/25 08:24 BP 130/92 H 01/27/25 08:24 Pulse Ox 99 01/27/25 08:24 O2 Del Method Room Air 01/27/25 08:24 Allergies Allergy/AdvReac Type Severity Reaction Status Date / Time No Known Allergies Allergy Mild Verified 01/27/25 08:07 Home Medications ?Medication ?Instructions ?Recorded ?Confirmed ?Type atorvastatin 20 mg tablet 20 mg PO DAILY 09/19/21 01/27/25 History ropinirole 1 mg tablet 1 mg PO QID 09/19/21 01/27/25 History vortioxetine 20 mg tablet 20 mg PO DAILY 09/19/21 01/27/25 History (Trintellix) Patient hx anesthesia problems: none Family hx anesthesia problems: none Results Review: All pre-operative results and documents have been reviewed as part of the pre- operative evaluation. [facility] Past Medical History Medical History Hypertension Depression Anxiety Hyperlipidemia Family History Family History Father Hypertension Social History Social History Smoking status: Never smoker Alcohol intake: never Drinks per week: 4 Alcohol use details: socially Substance use: current Substance use type: marijuana Other substance usage details: Daily Living arrangements: with family Spiritual care concerns: No Anes - Eval Final PreProcedure Day of Procedure 01/27/25 08:53 Patient weight: obese Lungs: normal air movement Airway: Mallampati scale class II Neurological: alert and oriented Last oral intake: >/= 8 hours ASA classification: II Emergent: no Anesthetic plan: proceed Anesthesia type and monitoring: general GIVS and standard monitoring Results Review: All pre-operative results and documents have been reviewed as part of the pre- operative evaluation. BMI 32, hyperlipidemia, cannabis use, typically 2 x daily. Informed Consent: The patient's anesthetic plan and its attendant risks and benefits were disc ussed with the patient/family/POA. Questions were solicited and answers provided to the satisfaction of the patient/family/POA.
--- NOTE | 2025-01-27 09:00 | P.HP_ITS ---
H&P: HPI History of Present Illness Date/Time: 01/27/25 09:00 Chief Complaint: Persistent nausea- history of colon polyps Narrative: the patient's last colonoscopy was in 2021, having large tubular adenoma, measu ring 1.5 cm. In addition patient has a history of persistent nausea almost every day and nonspecific epigastric discomfort. He is referred for colonoscopy and EGD. Review of Systems Review of Systems: All systems reviewed & are unremarkable except as noted in HPI and below PMFSH Past Medical History Medical History Hypertension Depression Anxiety Hyperlipidemia Family History Family History Father Hypertension Social History Social History Smoking status: Never smoker Alcohol intake: never Drinks per week: 4 Alcohol use details: socially Substance use: current Substance use type: marijuana Other substance usage details: Daily Living arrangements: with family Spiritual care concerns: No Meds Home Medications and Allergies Home Medications ?Medication ?Instructions ?Recorded ?Confirmed ?Type atorvastatin 20 mg tablet 20 mg PO DAILY 09/19/21 01/27/25 History ropinirole 1 mg tablet 1 mg PO QID 09/19/21 01/27/25 History vortioxetine 20 mg tablet 20 mg PO DAILY 09/19/21 01/27/25 History (Trintellix) Allergies Allergy/AdvReac Type Severity Reaction Status Date / Time No Known Allergies Allergy Mild Verified 01/27/25 08:07 Vital Signs Vital Signs - 24 hr 01/27/25 08:24 Temperature 97.0 F L Pulse Rate 67 Respiratory Rate 18 Blood Pressure 130/92 H Pulse Oximetry 99 Oxygen Delivery Room Air Exam Const: General: cooperative and healthy appearing Resp: Effort & Inspection: normal respiratory effort and able to speak in complete sentences Auscultation: clear to auscultation bilaterally Cardio: Rate: regular rate Rhythm: regular rhythm GI: Inspection: normal to inspection GI Palp: No No hepatosplenomegaly present Auscultation: normal bowel sounds Rectal Exam: deferred Skin: General skin exam: normal color Psych: Appearance: grossly normal Mental Status: mental status grossly normal Assessment and Plan Assessment and plan (1) History of colonic polyps: Code(s): Z86.0100 - Personal history of colon polyps, unspecified Status: Acute Assessment and Plan: The patient is deemed a good candidate for the procedures. Consent signed. Will proceed. (2) Nausea: Code(s): R11.0 - Nausea Status: Acute
--- NOTE | 2025-01-27 09:11 | S_PTH ---
PATIENT: Jonathan Mathew LOC: DRE #:[id number] AGE/SX: 54/M ROOM: RE01/27/[address]: Hugh Cerda MD : 1970 BED: DIS: 01/27/2025 SPEC #: [id number] RECD: 01/27/25 10:20 STATUS: STACEY REPresley #: [id number] RASHAWN: 01/27/25 09:[address]: Hugh Cerda DEPT: [facility] Surgical RECD BY: Lisa Phelan ENTERED: 01/27/25 10:20 SP TYPE: Surgical OTHR DR: Zhao AllisonMD Tissues: A - Gastric Biopsy B - Gastric Biopsy C - Colon Polypectomy D - Colon Polypectomy Procedures: Hematoxylin and Eosin Stain Gross and Microscopic Level 4
--- NOTE | 2025-01-27 09:13 | SUR.OPER ---
EGD: ended 907, COLON: started 912
[2025-01-27] MEDS: SIMETHICONE ORAL SUSPENSION 20 MG/0.3 ML 30 ML BOTTLE 0.6 ML IRRIGATION (09:19)
[2025-01-27 09:32] VITALS: BP 121/80; PULSE 73; RESP 20; O2SAT 97
[2025-01-27 09:42] VITALS: BP 133/81; PULSE 82; RESP 17; O2SAT 98
[2025-01-27 09:52] VITALS: BP 119/88; PULSE 72; RESP 17; O2SAT 98
== END 2025-01-27 10:13 | disposition home or self-care (01) ==
PROVIDERS: PCP Internal Medicine; Referring Provider Internal Medicine Gastroenterology; Visit Provider Internal Medicine Gastroenterology
PROC: 0DJD8ZZ Inspection of Lower Intestinal Tract, Via Natural or Artificial Opening Endoscopic (ICD-10-PCS; CPT 45378; principal; 2025-01-27 09:00)
PROC: 0DJ08ZZ Inspection of Upper Intestinal Tract, Via Natural or Artificial Opening Endoscopic (ICD-10-PCS; CPT 43239; 2025-01-27 09:00)
DX: Z12.11 Encounter for screening for malignant neoplasm of colon (principal); D12.4 Benign neoplasm of descending colon; D12.3 Benign neoplasm of transverse colon; K64.8 Other hemorrhoids; K29.30 Chronic superficial gastritis without bleeding; K44.9 Diaphragmatic hernia without obstruction or gangrene; E78.5 Hyperlipidemia, unspecified; I10 Essential (primary) hypertension; F32.A Depression, unspecified; F41.9 Anxiety disorder, unspecified; K21.9 Gastro-esophageal reflux disease without esophagitis; F12.90 Cannabis use, unspecified, uncomplicated; E66.9 Obesity, unspecified; Z68.32 Body mass index [BMI] 32.0-32.9, adult
CPT/HCPCS: 43239; 45385; 88305; J2704; J7120